=== PATIENT | female | born 1950 | race Caucasian/White ===

== ENCOUNTER 2019-01-15 06:36 | Day surgery (SDC) | payer MEDICARE, MEDICAID ==
[2019-01-11 15:47] LABS: BASOPHILS # (AUTO) 0.1 X10'3 (0-0.2); BASOPHILS % (AUTO) 1.2 % (0-1); EOSINOPHILS # (AUTO) 0.2 X10'3 (0-0.9); EOSINOPHILS % (AUTO) 2.3 % (0-6); LYMPHOCYTES # (AUTO) 2.5 X10'3 (1.1-4.8); LYMPHOCYTES % (AUTO) 24.4 % (21-51); MEAN CORPUSCULAR HEMOGLOBIN 31.1 PG (27.0-31.0); MEAN CORPUSCULAR HGB CONC 34.6 g/dL (33.0-36.5); MONOCYTES # (AUTO) 0.6 X10'3 (0-0.9); MONOCYTES % (AUTO) 6.1 % (2-12); NEUTROPHILS # (AUTO) 6.7 X10'3 (1.8-7.7); PRE OP HEMATOCRIT 33.2 % (35.0-45.0); PRE OP HEMOGLOBIN 11.5 g/dL (12.0-16.0); PRE OP PLATELET COUNT 282 X10'3 (140-440); RED BLOOD COUNT 3.69 X10'6 (4.20-5.60); RED CELL DISTRIBUTION WIDTH 13.5 % (11.5-14.5)
[2019-01-11 16:00] LABS: ALBUMIN 3.5 G/DL (3.4-5.0); ALBUMIN/GLOBULIN RATIO 0.9 (1.1-1.5); ALKALINE PHOSPHATASE 94 IU/L (46-116); BLOOD UREA NITROGEN 19 MG/DL (7-18); BUN/CREATININE RATIO 20.7 (6.6-38.0); CALCIUM 9.9 MG/DL (8.5-10.1); CHLORIDE 106 MMOL/L (99-107); CREATININE 0.92 MG/DL (0.40-0.90); HEMOGLOBIN A1C 8.2 % (4.5-6.2); PRE OP ALT 32 U/L (30-65); PRE OP ANION GAP 12 (8-16); PRE OP AST 20 U/L (10-37); PRE OP BILIRUB, TOTAL 0.3 MG/DL (0.0-1.0); PRE OP GLUCOSE 128 MG/DL (70-104); PRE OP POTASSIUM 4.3 MMOL/L (3.4-5.1); PRE OP SODIUM 142 MMOL/L (135-145); TOTAL CARBON DIOXIDE 24.4 MMOL/L (24-32); TOTAL PROTEIN 7.4 G/DL (6.4-8.2); eGFR 61 ML/MIN
[~2019-01-15] VITALS: Ht 172.7 cm; Wt 67.1 kg
[~2019-01-15 06:36] MED LIST: ASPI-1265 PO; CARV12.5 PO; CLOP75TA35 PO; DOCUMENT DATE & TIME OF BETA-BLOCKER PO ONE; INSU100I31 SQ; MELO-100 PO; METF500T PO; METF500T20 PO; QUIN10TA16 PO; SITA100T15 PO; cefazolin/dext.iso 2gm/100 ML IV ONE; famotidine 20mg tablet PO ONE; ringers solution, lacted 1,000 ML IV SCH
[2019-01-15] MEDS ORDERED: BUPIVAcaine/PF 2.5mg/ml (0.25%) 10ml vial ONE (06:39)
[2019-01-15 07:00] VITALS: BP 122/66
[2019-01-15] MEDS ORDERED: LIDOcaine 0.5% (5mg/ml) 50ml vial ONE (08:01)
[2019-01-15] MEDS ORDERED: insulin regular, human 10 units/0.1 ml syringe IV ONE (08:05)
--- NOTE | 2019-01-15 08:05 | NUR ---
BS [address]. DR PATRICIO NOTIFIED. ORDERS RECEIVED.
[2019-01-15] MEDS ORDERED: ondansetron/PF 4mg/2ml inj IV PRN (09:20)
[2019-01-15] MEDS ORDERED: meperidine/PF 25mg/ml syringe IV PRN ×3 (09:20)
[2019-01-15] MEDS ORDERED: morphine 4 MG/ML inj SYRINge IV PRN ×2 (09:20)
[2019-01-15] MEDS ORDERED: ringers solution, lacted 1,000 ML IV SCH (09:20)
[2019-01-15] MEDS ORDERED: proCHLORperazine 10 MG/2 ml inj IV PRN (09:20)
[2019-01-15] MEDS ORDERED: midazolam 2 mg/2 ml injection ONE (09:30)
[2019-01-15] MEDS ORDERED: fentaNYL/PF 50MCG/1 ML 2ML syringe ONE (09:30)
[2019-01-15 10:42] VITALS: BP 139/75
[2019-01-15 10:52] VITALS: BP 121/66
[2019-01-15 11:02] VITALS: BP 124/70
[2019-01-15 11:12] VITALS: BP 134/70
--- NOTE | 2019-01-15 11:32 | NUR ---
AWAKE AND ORIENTED. VITALS STABLE. DRESSING DI. AUGUSTUS PAIN. HOME WITH A FRIEND AT THIS TIME.
== END 2019-01-15 11:32 | disposition home or self-care (01) ==
LOC: PAS 06:36
PROVIDERS: ATTEND Orthopaedic Surgery Hand Surgery
DX: M65.322 Trigger finger, left index finger (principal); M65.332 Trigger finger, left middle finger; I10 Essential (primary) hypertension; E11.9 Type 2 diabetes mellitus without complications; I25.2 Old myocardial infarction; M19.90 Unspecified osteoarthritis, unspecified site; Z95.5 Presence of coronary angioplasty implant and graft; Z88.8 Allergy status to other drugs, medicaments and biological substances; Z79.82 Long term (current) use of aspirin; Z79.84 Long term (current) use of oral hypoglycemic drugs; Z79.01 Long term (current) use of anticoagulants; Z79.899 Other long term (current) drug therapy
CPT/HCPCS: 26055; 36415; 80053; 82948; 83036; 85025; 93005; J1815; J2001; J2250; J3010; J3490; A4215; A6449; J7120